=== PATIENT | female | born 1990 | race Two or more races ===

== ENCOUNTER 2016-10-29 16:19 | Emergency (ER) | payer MEDICAID ==
[~2016-10-29] VITALS: Ht 165.1 cm; Wt 99.8 kg
[2016-10-29 16:28] VITALS: BP 122/76
[2016-10-29 17:09] LABS: Basophils # (auto) 0.1 uL; Basophils % (auto) 0.5 % (0.0-2.0); Eosinophils # (auto) 0.1 uL; Eosinophils % (auto) 0.8 % (0.0-7.0); Hemoglobin 13.7 g/dL (12.2-16.2); Lymphocytes # (auto) 3.1 uL; Lymphocytes % (auto) 28.1 % (10.0-50.0); Mean Corpuscular Hemoglobin 27.5 pg (28.0-32.0); Mean Corpuscular Hgb Conc. 31.1 g/dL (32.0-36.0); Mean Corpuscular Volume 88.5 fL (80.0-100.0); Monocytes # (auto) 0.6 uL; Monocytes % (auto) 5.5 % (0.0-12.0); Neutrophils # (auto) 7.1 uL; Neutrophils % (auto) 65.1 % (37.0-80.0); Platelet Count (auto) 380 10^3/uL (140-450); Red Cell Distribution Width 14.4 % (11.6-16.0); White Blood Cell 10.9 10^3/uL (4.4-10.8)
[2016-10-29 17:26] LABS: Albumin 3.8 g/dL (3.4-5.0); BUN/Creatinine Ratio 6.9; Calcium 8.6 mg/dL (8.5-10.1); Potassium 3.6 mmol/L (3.5-5.1)
[2016-10-29 17:29] LABS: Bilirubin, Total 0.4 mg/dL (0.2-1.0); Total Protein 7.1 g/dL (6.4-8.2)
[2016-10-29 17:38] LABS: Urine Bilirubin Negative (Negative); Urine Color Yellow (Yellow); Urine Glucose Normal (Normal); Urine Mucus FEW (None Seen); Urine RBC 4 /hpf (0 - 4); Urine Squamous Epithelial Cell MOD /hpf (<5); Urine Urobilinogen Normal (Negative)
[2016-10-29 17:42] LABS: Urine Blood 2+ /uL (Negative); Urine Ketone 2+ (Negative); Urine Nitrite POSITIVE (Negative)
== END 2016-10-29 19:25 | disposition home or self-care (01) ==
LOC: ER 16:25
DX: O23.41 Unspecified infection of urinary tract in pregnancy, first trimester (principal); O26.851 Spotting complicating pregnancy, first trimester; O26.891 Other specified pregnancy related conditions, first trimester; O02.0 Blighted ovum and nonhydatidiform mole
CPT/HCPCS: 36415; 76801; 80053; 81001; 84702; 85025

== ENCOUNTER 2016-11-01 06:23 | Emergency (ER) | payer MEDICAID ==
[~2016-11-01] VITALS: Ht 157.5 cm; Wt 35.4 kg
[2016-11-01 11:52] VITALS: BP 121/45
== END 2016-11-01 12:17 | disposition home or self-care (01) ==
LOC: ER 06:33
DX: O26.851 Spotting complicating pregnancy, first trimester (principal); Z3A.01 Less than 8 weeks gestation of pregnancy
CPT/HCPCS: 36415; 84702